=== PATIENT | female | born 1945 | race Two or more races ===

== ENCOUNTER 2023-04-26 12:41 | Emergency (ER) | payer OTHER ==
[~2023-04-26] VITALS: Ht 157.5 cm; Wt 63.5 kg
[2023-04-26 13:00] VITALS: TEMP 98.6
[2023-04-26] MEDS ORDERED: IBUPROFEN 600 MG TABLET PO ONE (13:00)
[2023-04-26] MEDS ORDERED: IBUP-1957 PO (13:03)
[2023-04-26] MEDS ORDERED: IBUPROFEN 600 MG TABLET ONE (13:07)
[2023-04-26 13:24] VITALS: BP 140/81; O2SAT 100
== END 2023-04-26 13:25 | disposition home or self-care (01) ==
LOC: ER 12:47
DX: S20.219A Contusion of unspecified front wall of thorax, initial encounter (principal); I10 Essential (primary) hypertension; Z79.899 Other long term (current) drug therapy; V89.2XXA Person injured in unspecified motor-vehicle accident, traffic, initial encounter; Y93.89 Activity, other specified; Y92.89 Other specified places as the place of occurrence of the external cause; Y99.8 Other external cause status
CPT/HCPCS: 71045-TC